=== PATIENT | female | born 1955 | race African-American/Black ===

== ENCOUNTER → 2017-06-21 | Outpatient (CLI) | payer MEDICARE ==
[~2017-06-21] VITALS: Ht 160 cm; Wt 146.3 kg
[~2017-06-21] MED LIST: CHLORHEXIDINE GLUCONATE 2 % 1 PACK (2 CLOTHS) TOPICAL PRN; CHOL1CAP34 PO; GLIP10TA6 PO; LACTATED RINGER'S 1000 ML IV PRN; LIDOCAINE HCL 1% PF 5 ML SYRINGE OTHER ONE; LISI-515 PO; LOVA40TA PO; METOPROLOL TARTRATE 25 MG TAB PO PRN; POVIDONE IODINE 5% (ANTISEPSIS KIT) 4 APPLICATIONS EACH NARE PRN; PROPOFOL 200 MG/20 ML AMP IV ONE; SODIUM CHLORID 0.9% 500 ML IV PRN; SYMB160A INH
--- NOTE | 2017-06-21 09:33 | GIPROC ---
[facility] [address] [facility]. [facility], [address] EGD PROCEDURE REPORT EXAM DATE: 06/21/2017 PATIENT NAME: Isha Plata MR #: [id number] BIRTHDATE: 1955 ATTENDING: Clark Angel MD ORDER #: [id number] COOLING TOWER TECHNICIAN: Delaney Richards and Deyanira Ross STATUS: outpatient INDICATIONS: The patient is a 62 yr old female here for an EGD due to follow up of GERD PROCEDURE PERFORMED: EGD w/ biopsy MEDICATIONS: None and Per Anesthesia. TOPICAL ANESTHETIC: none CONSENT: The patient understands the risks and benefits of the procedure and understands that these risks include, but are not limited to: sedation, allergic reaction, infection, perforation and/or bleeding. Alternative means of evaluation and treatment include, among others: physical exam, x-rays, and/or surgical intervention. The patient elects to proceed with this endoscopic procedure. medical equipment was checked for proper function. Hand hygiene and appropriate measures for infection prevention was taken. After the risks, benefits and alternatives of the procedure were thoroughly explained, Informed consent was verified, confirmed and timeout was successfully executed by the treatment team. The patient was anesthetized with anesthesia and the Qbox.ioax EG-[id number] endoscope was introduced through the mouth and advanced to the second portion of the duodenum. Mild gastritis noted, bile in stomach. Small polyp. Antrum biopsy for gastritis and h.pylori. Poly biopsy x2. Retroflexed views revealed a hiatal hernia The gastroscope was then slowly withdrawn and removed. STOMACH: There was mild gastritis in the gastric body. small Polyp was found. ADVERSE EVENTS: There were no complications. IMPRESSIONS: 1. There was mild gastritis in the gastric body 2. Retroflexed views revealed a hiatal hernia 3. small polyp RECOMMENDATIONS: 1. Start PPI 2. Await biopsy results. Biopsy results will not be ready for 7-10 days. If you don't hear from us in two weeks, call our office for biopsy results. PATIENT CONDITION: fair DISPOSITION: Home REPEAT EXAM: NONE Clark Angel MD eSigned: Clark Angel MD 06/21/2017 9:33 AM cc: Clark Angel MD PATIENT NAME: Isha Plata MR#: [id number]
[2017-06-21 10:10] VITALS: BP 110/63; PULSE 56; RESP 16; TEMP 98.2; O2SAT 98
--- NOTE | 2017-06-21 13:42 | EKG ---
Date Performed: 06/21/2017 Time Performed: 08:56:01 PTAGE: 62 years EKG: Sinus rhythm WITH SINUS ARRHYTHMIA NORMAL ECG NO PREVIOUS TRACING DOCTOR: Victor Hugo Cadet Interpretating Date/Time 06/21/2017 13:39:53
== END ==
LOC: HSDC 07:55
PROVIDERS: ATTEND Surgery
DX: K21.9 Gastro-esophageal reflux disease without esophagitis (principal); K29.70 Gastritis, unspecified, without bleeding; K44.9 Diaphragmatic hernia without obstruction or gangrene; K31.7 Polyp of stomach and duodenum; I49.8 Other specified cardiac arrhythmias
CPT/HCPCS: 88305; 88312; 93005

== ENCOUNTER 2017-12-19 05:20 | Inpatient (IN) ==
[2017-12-19] MEDS ORDERED: Metoprolol Tartrate 25 MG Tablet PO ONE (05:40)
[2017-12-19] MEDS ORDERED: Chlorhexidine Gluconate 2% 1 Pack (2 Cloths) TOPICAL ONE (05:40)
[2017-12-19] MEDS ORDERED: ceFAZolin 2 GM Premix Inj 2 GM/50 ML PIGGYBACK IV.SIG PRN (05:41)
[2017-12-19] MEDS ORDERED: Sodium Chlor 0.9% Inj 500 ML IV.SIG SCH (06:00)
[2017-12-19] MEDS ORDERED: Bupivacaine/Epinephrine Inj 0.25% 50 ML Vial ONE (07:01)
[2017-12-19] MEDS ORDERED: fentaNYL Citrate Inj 100 MCG/2 ML Ampul ONE (07:48)
[2017-12-19] MEDS ORDERED: Glycopyrrolate Inj 1 MG/5 ML Syringe IV.PUSH ONE (08:00)
[2017-12-19] MEDS ORDERED: Neostigmine Inj 5 MG/5 ML Syringe IV.PUSH ONE (08:00)
[2017-12-19] MEDS ORDERED: Phenylephrine/NS 1000 MCG/10ML Syringe IV.PUSH ONE (08:00)
[2017-12-19] MEDS ORDERED: Lidocaine PF 1% Inj 5 ML Syringe INFILTRATN ONE (08:00)
[2017-12-19] MEDS ORDERED: HYDROmorphone PF Inj 2 MG/ML Vial ONE (08:49)
[2017-12-19] MEDS ORDERED: fentaNYL Citrate Inj 250 MCG/5 ML Ampul ONE ×2 (08:49→08:51)
[2017-12-19] MEDS ORDERED: diphenhydrAMINE HCl 12.5 MG/5 ML Elixir UDC PO PRN (11:41)
[2017-12-19] MEDS ORDERED: Post-op Orders (for Pharmacy) OTHER STA (11:41)
--- NOTE | 2017-12-19 11:47 | P.OP ---
- Preoperative Diagnosis (1) Morbid obesity with BMI of 50.0-59.9, adult - Postoperative Diagnosis (1) Morbid obesity with BMI of 50.0-59.9, adult Date of procedure: 12/19/17 Procedure: robotic asst laparoscopic sleeve gastrectomy, lysis of adhesion, hh repair Anesthesia: BERNARD Surgeon: Clark Angel MD Search Engine Optimization Consultant: Ronald Milan Estimated blood loss (mL): 50 Pathology: none sent Operation and Findings: multiple adhesions, extensive, small hiatal hernia
[2017-12-19] MEDS ORDERED: KCL 20 mEq/D5W/NaCl 0.9% Inj 1,000 ML ONE (11:52)
[2017-12-19] MEDS: KCL 20 mEq/D5W/NaCl 0.45% Inj 1,000 ML IV.CONT SCH ×2 (13:00→21:56)
[2017-12-19] MEDS ORDERED: *Ondansetron Inj 4 MG/2 ML Vial PERIprocedural Use ONLY ONE (13:46)
[2017-12-19] MEDS: Enoxaparin Inj 40 MG/0.4 ML Syringe SQ SCH (16:53)
[2017-12-19] MEDS ORDERED: Naloxone Inj 0.4 MG/ML Vial IV.PUSH PRN (20:53)
[2017-12-19] MEDS ORDERED: Morphine Inj 30 MG/30 ML PCA.VIAL PCA PRN (20:53)
[2017-12-19] MEDS: PCA - Total MG Morphine Delevered per Shift MISCELLANE SCH (22:50)
[2017-12-20] MEDS: KCL 20 mEq/D5W/NaCl 0.45% Inj 1,000 ML IV.CONT SCH ×3 (06:28→23:35)
[2017-12-20] MEDS: PCA - Total MG Morphine Delevered per Shift MISCELLANE SCH ×2 (06:29→16:20)
[2017-12-20 07:20] LABS: Baso # (Auto) 0.1 th/mm3 (0.0-0.2); Baso % (Auto) 0.4 % (0.0-2.0); Eos % (Auto) 0.1 % (0.0-4.0); Hematocrit 42.5 % (35.0-46.0); Hemoglobin 13.5 gm/dL (11.6-15.3); Lymph # (Auto) 1.7 th/mm3 (1.0-4.8); Lymph % (Auto) 12.5 % (9.0-44.0); Mean Corpuscular HGB Conc 31.7 % (32.0-36.0); Mean Corpuscular Hemoglobin 26.4 pg (27.0-34.0); Mean Corpuscular Volume 83.3 fL (80.0-100.0); Mean Platelet Volume 7.8 fL (7.0-11.0); Mono # (Auto) 1.2 th/mm3 (0.0-0.9); Mono % (Auto) 8.6 % (0.0-8.0); Neut # (Auto) 10.6 th/mm3 (1.8-7.7); Neut % (Auto) 78.4 % (16.0-70.0); Platelet Count 559 th/mm3 (150-450); Red Cell Distribution Width 15.4 % (11.6-17.2); White Blood Count 13.5 th/mm3 (4.0-11.0)
[2017-12-20 07:54] LABS: Calcium 7.9 mg/dL (8.5-10.1); Carbon Dioxide 26.4 meq/L (21.0-32.0); Magnesium 2.2 mg/dL (1.5-2.5); Potassium 4.1 meq/L (3.5-5.1)
--- NOTE | 2017-12-20 10:29 | P.PNGS ---
Subjective Patient reports: no new complaints, feels better, still having pain Physical Exam Vital signs: Vital Signs 12/19/17 11:57 12/19/17 12:00 12/19/17 12:15 Temperature 97.9 F Pulse Rate 69 65 67 Respiratory Rate 23 12 13 Blood Pressure 147/69 H 144/67 H 145/68 H Pulse Oximetry 100 100 100 12/19/17 12:30 12/19/17 12:45 12/19/17 13:00 Temperature Pulse Rate 68 71 70 Respiratory Rate 15 14 16 Blood Pressure 138/99 H 142/68 H 143/68 H Pulse Oximetry 100 100 100 12/19/17 13:16 12/19/17 13:30 12/19/17 14:00 Temperature Pulse Rate 73 74 75 Respiratory Rate 15 14 13 Blood Pressure 132/64 132/67 145/74 H Pulse Oximetry 100 100 100 12/19/17 15:00 12/19/17 16:30 12/19/17 20:00 Temperature 97.7 F 97.3 F L Pulse Rate 86 63 Respiratory Rate 16 17 Blood Pressure 133/71 148/74 H Pulse Oximetry 95 93 L 12/19/17 22:41 12/19/17 23:22 12/19/17 23:26 Temperature 98.0 F Pulse Rate 69 Respiratory Rate 16 18 Blood Pressure 133/62 Pulse Oximetry 93 L 93 L 12/20/17 00:00 12/20/17 03:57 12/20/17 04:00 Temperature 98.4 F 98.2 F Pulse Rate 68 65 Respiratory Rate 16 16 17 Blood Pressure 123/60 115/56 L Pulse Oximetry 94 L 94 L Intake & Output 12/19/17 12/20/17 12/20/17 18:59 06:59 18:59 Intake Total 2426 / 2426 2848 / 2848 100 / 100 Output Total 1000 / 1000 400 / 400 900 / 900 Balance 1426 / 1426 2448 / 2448 -800 / -800 Weight 131.1 kg Intake: IV 1726 / 1726 2848 / 2848 100 / 100 D5W/1/2NS + KCL 20 mEq Inj 1, 326 / 326 1348 / 1348 000 ML @ 125 mls/hr IV.CONT . Q8H [facility] Rx#:[id number] Ofirmev Inj 1,000 mg In 100 ml 200 / 200 200 / 200 @ 400 mls/hr IV.SIG Q6H [facility] Rx# :[id number] LR 1000 mL Inj 1,000 ML @ 30 1000 / 1000 mls/hr IV.SIG .Q24H [facility] Rx#: [id number] Ancef Inj 1,000 MG In NS Inj 100 / 100 100 / 100 100 / 100 100 ML @ 200 mls/hr IV.SIG Q8H [facility] Rx#:[id number] Flagyl 500 MG Inj 100 ML @ 100 100 / 100 100 / 100 mls/hr IV.SIG Q8H [facility] Rx#: [id number] Oral 0 / 0 Anesthesia Amount 700 / 700 Output: Urine 800 / 800 400 / 400 900 / 900 Estimated Blood Loss 50 / 50 Urine Amount (Catheter) 150 / 150 Indwelling Urethral Catheter 150 / 150 - Constitutional no acute distress - Routine Respiratory Exam Present: CTA bilaterally - Routine Cardiovascular Exam Present: RRR - Routine Abdominal Exam Present: soft (incisional tenderness, c/d/i) - Urinary Catheter Management Indwelling Urethral Catheter Cath placed during this visit: yes, but has since been removed by the nurse Reason for continuing: Hourly intake/output Insertion date: 12/19/17 Insertion time: 09:10 Removal date: 12/19/17 Removal time: 11:30 Assessment and Plan - Plan pod 1 lap sleeve doing well, still with nausea and pain PLAN oob pain control will wean compliance monitor dvt ppx bariatric liquid diet anticipate d/c 24-48 hours
--- NOTE | 2017-12-20 13:31 | MP ---
cc: Clark Angel MD DATE OF OPERATION: 12/19/2017 PREOPERATIVE DIAGNOSIS: Morbid obesity, BMI 60, multiple comorbidities including diabetes, sleep apnea, hypertension. POSTOPERATIVE DIAGNOSES: Morbid obesity, BMI 60, multiple comorbidities including diabetes, sleep apnea, hypertension. PROCEDURE PERFORMED: Robotic-assisted sleeve gastrectomy, extensive lysis of adhesions greater than 120 minutes, hiatal hernia repair. SURGEON: Clark Angel MD RETURN TO VENDOR: Ronald Milan MD. Dr. Ronald Milan was needed due to complexity of the case. Dr. Milan assisted with camera control, retraction, and stapling. ANESTHESIA: GETA. IV FLUIDS: See anesthesia sheet. ESTIMATED BLOOD LOSS: 20 mL. DRAINS: None. SPECIMENS: None. WOUND CLASSIFICATION: Clean. FINDINGS: A significant amount of multiple intraabdominal adhesions to the anterior abdominal wall to a previously placed abdominal wall hernia mesh into previous open cholecystectomy scar. The original plan was for a duodenal switch robotic procedure; however, a change in procedure was necessary due to the fact that the intraabdominal adhesions were so extensive and the small bowel was significantly intimately adhered to multiple intraabdominal adhesions prohibiting the commencement of the duodenal switch. Therefore, a sleeve gastrectomy was done. Also lysis of adhesions. Small hiatal hernia noted and repaired. SPECIMENS: None. DETAILS OF PROCEDURE: The patient was taken to the operating suite, placed in supine position. She was prepped and draped in usual sterile fashion after induction of general endotracheal anesthesia. Brief timeout done stating correct patient, procedure, and surgical site were all given with this. Attention was directed to the left upper quadrant where a stab abisai incision was made after injecting local anesthetic. This was done with an 11 blade. The Visiport Optiview port was done with 5 mm to enter the abdomen in the left upper quadrant safely. Abdomen insufflated to 15 mm pneumoperitoneum. On cursory inspection, there were multiple intraabdominal adhesions. The left side was somewhat clear of adhesions facilitating a left mid quadrant robotic trocar #8. Lysis of adhesions was begun in order to clear the adhesions off the anterior abdominal wall to facilitate port placement and fully identify the anatomy. After tedious adhesions in multiple places some of the abdominal wall was able to be utilized. A 12 mm supraumbilical port was placed for camera. Another 8 mm left lower quadrant port was changed after changing out of the 5 mm previously placed a left upper quadrant port. Several other adhesions were mobilized and taken down the anterior abdominal wall in the right upper quadrant and allowing a #8 port. After identification of the terminal ileum, it was noted that the significant portion of the small bowel still remained within multiple intraabdominal adhesions. This was prohibitory to proceed with the duodenal switch procedure given the extensive amount of adhesions that would have had to be dealt with in order to run the bowel in its entirety and create anastomosis. Therefore, decision was made to direct attention to the stomach and commence the sleeve gastrectomy portion only. The 5 mm subxiphoid port was placed. To facilitate liver retraction Allis clamp was used to retract the left lobe of the liver, grab the crura of the diaphragm. The robot was then docked. A Harmonic scalpel,bipolar and cautery was used. The greater curvature of the stomach, omentum was taken down using Harmonic scalpel 6 cm from the pylorus up to the incisura and the GE junction. This was done again using robotic assist. Of note, there was a 12 mm right lower quadrant abdominal port placed for assistance. Once the adhesions were taken down there was noted to be a small hiatal hernia. The left and right crura were dissected out and the esophagus was mobilized up into the partial thoracic cavity in order to fully delineate the hiatal hernia and reduce this. The Visi-G 36-Macedonian bougie was used and advanced down to the stomach. The hiatal hernia was closed anteriorly using a [id number]-pr-dayom 0 silk suture was used. The sleeve was then done trying removing 80% of stomach using initial backload Endo-DAVID. Again, Dr. Milan assisted with this and facilitated firing the staple loads. Followed by green and gold loads all the way up to the GE junction, a 2 cm from GE junction. This was done with reinforced SeamGuard. The sleeve gastrectomy was completed and there was still noted to be some adhesion to the posterior stomach. These were left in place and the sleeve sat comfortably within the abdomen. A 60 mL syringe x2 was done to evaluate the staple line without evidence of leaking. This was suctioned and his Visi-G was removed. Evicel was sprayed on the staple line as well for assistance in hemostasis. Small clip placed proximal stomach near the mesentery for small mesentery bleeder near the antrum. Following this the robot was then undocked and then I returned to the patient's bedside. The stomach was removed through the right lower quadrant 12 mm port. Liver retractor was removed, pneumoperitoneum was also removed. Prior to the 12 mm umbilical and right lower quadrant port sites were closed with 0 Vicryl. Local anesthetic injected 4-0 Monocryl used on all skin incisions and sterile dressings, including Mastisol and Steri-Strips, were placed. The patient tolerated the procedure well, there was no intraoperative complications. All lap and needle counts were correct. At the end of procedure patient was extubated and taken to PACU. MD DANIELLE Garcia/aletha/aldo , 12:01 PM , 12:15 PM JARRETT
[2017-12-20] MEDS: Enoxaparin Inj 40 MG/0.4 ML Syringe SQ SCH (16:20)
[2017-12-20] MEDS ORDERED: Dexamethasone Inj 20 MG/5 ML Vial IV.PUSH ONE (18:27)
[2017-12-20] MEDS: Hyoscyamine Liq Drops 0.125 MG/ML 15 ML Bottle SL SCH (20:57)
[2017-12-21] MEDS: PCA - Total MG Morphine Delevered per Shift MISCELLANE SCH ×3 (01:35→16:19)
[2017-12-21] MEDS: Hyoscyamine Liq Drops 0.125 MG/ML 15 ML Bottle SL SCH ×5 (01:36→16:19)
[2017-12-21] MEDS: KCL 20 mEq/D5W/NaCl 0.45% Inj 1,000 ML IV.CONT SCH ×3 (04:28→16:19)
--- NOTE | 2017-12-21 13:49 | P.PNGS ---
Subjective Patient reports: no new complaints, feels better, flatus Physical Exam Vital signs: Vital Signs 12/20/17 16:00 12/20/17 20:00 12/21/17 00:00 Temperature 98.1 F 98.3 F 98.0 F Pulse Rate 56 L 73 62 Respiratory Rate 17 20 20 Blood Pressure 137/58 L 128/62 113/58 L Pulse Oximetry 95 96 96 12/21/17 08:00 Temperature 98.6 F Pulse Rate 64 Respiratory Rate 16 Blood Pressure 147/76 H Pulse Oximetry 98 Intake & Output 12/20/17 12/21/17 12/21/17 18:59 06:59 18:59 Intake Total 1360 / 1360 1000 / 1000 1000 / 1000 Output Total 1700 / 1700 Balance -340 / -340 1000 / 1000 1000 / 1000 Intake: IV 1300 / 1300 1000 / 1000 1000 / 1000 D5W/1/2NS + KCL 20 mEq Inj 1, 1000 / 1000 1000 / 1000 1000 / 1000 000 ML @ 125 mls/hr IV.CONT . Q8H [facility] Rx#:[id number] Ofirmev Inj 1,000 mg In 100 ml 100 / 100 @ 400 mls/hr IV.SIG Q6H [facility] Rx# :[id number] Ancef Inj 1,000 MG In NS Inj 100 / 100 100 ML @ 200 mls/hr IV.SIG Q8H [facility] Rx#:[id number] Flagyl 500 MG Inj 100 ML @ 100 100 / 100 mls/hr IV.SIG Q8H [facility] Rx#: [id number] Oral 60 / 60 Output: Urine 1700 / 1700 Other: # Voids 3 Date of Last Bowel Movement 12/21/17 # Bowel Movements 0 - Routine Respiratory Exam Present: CTA bilaterally - Routine Cardiovascular Exam Present: RRR - Routine Abdominal Exam Present: soft (incisional tenderness) - Urinary Catheter Management Indwelling Urethral Catheter Cath placed during this visit: yes, but has since been removed by the nurse Reason for continuing: Hourly intake/output Insertion date: 12/19/17 Insertion time: 09:10 Removal date: 12/19/17 Removal time: 11:30 Assessment and Plan - Plan pod 2 lap sleeve doing well, nausea and pain better PLAN oob pain control will wean loading unit operator seating dvt ppx bariatric liquid diet d/c today if tolerating liquids
[2017-12-21 15:17] VITALS: BP 141/65; PULSE 53; RESP 18; TEMP 97.7; O2SAT 97
[2017-12-21] MEDS: Enoxaparin Inj 40 MG/0.4 ML Syringe SQ SCH (16:18)
== END 2017-12-21 17:35 | disposition home or self-care (01) ==
LOC: HSDI 05:20 → N07 15:23
PROVIDERS: ADMIT Surgery; ATTEND Surgery